=== PATIENT | male | born 1950 | race Caucasian/White ===

== ENCOUNTER 2023-10-16 18:24 | Inpatient (IN) | payer MEDICARE, OTHER ==
[~2023-10-16] VITALS: Ht 170.2 cm; Wt 62.4 kg
[2023-10-16 20:00] VITALS: BP 162/68; TEMP 99; O2SAT 93
[2023-10-16] MEDS ORDERED: MAGNESIUM HYDROXIDE 30 ML UDC PO PRN (21:30)
[2023-10-16] MEDS ORDERED: MAG HYDROX/AL HYDROX/SIMETH 30 ML UDC PO PRN (21:30)
[2023-10-16] MEDS ORDERED: IPRATROPIUM NEB FS 0.5 MG/2.5 ML AMPUL.NEB NEB PRN (21:30)
[2023-10-16] MEDS ORDERED: NITROGLYCERIN 0.4 MG/TAB BOTTLE SL PRN (21:30)
[2023-10-16] MEDS ORDERED: Z GUARD REMEDY 4 OZ OINT TP PRN (21:30)
[2023-10-16] MEDS ORDERED: ZOLPIDEM TARTRATE 5 MG TABLET PO PRN (21:30)
[2023-10-16] MEDS ORDERED: ALBUTEROL FS 2.5 MG/3 ML VIAL.NEB NEB PRN (21:30)
[2023-10-16] MEDS ORDERED: ENOXAPARIN SODIUM 40 MG/0.4 ML DISP.SYRIN SQ SCH (21:30)
[2023-10-16] MEDS ORDERED: ONDANSETRON HCL/PF 4 MG/2 ML VIAL IVP PRN (21:30)
[2023-10-16] MEDS: FUROSEMIDE 20 MG/2 ML VIAL IV SCH (22:04)
[2023-10-17] VITALS (9 sets, daily range): BP systolic 142–173; BP diastolic 65–79; TEMP 98.1–99.3; O2SAT 93–97
[2023-10-17] MEDS: ACETAMINOPHEN 325 MG TABLET PO PRN (02:06)
[2023-10-17 07:19] LABS: BASOPHILS # (AUTO) 0.1 K/uL (0.0-0.2); EOSINOPHILS # (AUTO) 0.2 K/uL (0.0-0.7); EOSINOPHILS % (AUTO) 2.9 % (0.0-6.0); HEMATOCRIT 26 % (39-51); HEMOGLOBIN 8.6 g/dL (13.5-17.5); LYMPHOCYTES # (AUTO) 1.6 K/uL (0.8-4.8); LYMPHOCYTES % (AUTO) 24.5 % (20.0-44.0); MEAN CORPUSCULAR HEMOGLOBIN 30 PG (26.0-33.0); MEAN CORPUSCULAR HGB CONC 33 g/dl (31.0-36.0); MEAN CORPUSCULAR VOLUME 90 fL (80-96); MONOCYTES # (AUTO) 0.4 K/uL (0.1-1.30); MONOCYTES % (AUTO) 5.6 % (2.0-12.0); NEUTROPHILS # (AUTO) 4.2 K/uL (1.8-8.9); PLATELET COUNT (AUTO) 293 K/uL (150-450); RED BLOOD CELL COUNT(AUTO) 2.87 MIL/uL (4.5-6.0); RED CELL DISTRIBUTION WIDTH 14.6 % (11.5-15.0); WHITE BLOOD COUNT (AUTO) 6.4 K/uL (4.3-11.0)
[2023-10-17 07:43] LABS: CHOLESTEROL 108 mg/dL (<200); HDL CHOLESTEROL 35 mg/dL (40-60); LDL 58 mg/dL (0-99); THYROID STIMULATING HORMONE 6.485 uIU/mL (0.358-3.74); TRIGLYCERIDES 90 mg/dL (30-150)
[2023-10-17 07:45] LABS: ALANINE AMINOTRANSFERASE 30 U/L (12-78); ALBUMIN 2.2 g/dL (3.4-5.0); ALKALINE PHOSPHATASE 166 U/L (46-116); ASPARTATE AMINOTRANSFERASE 26 U/L (15-37); BILIRUBIN,DIRECT 0.2 mg/dL (0.0-0.2); BILIRUBIN,TOTAL 0.6 mg/dL (0.2-1.0); CALCIUM, SERUM 8.7 mg/dL (8.5-10.1); CARBON DIOXIDE 25 mmol/L (21-32); CHLORIDE 112 mmol/L (98-107); MAGNESIUM 2.2 mg/dL (1.8-2.4); NT-PRO BNP > 25000 pg/mL (0-125); PHOSPHORUS 4.3 mg/dL (2.5-4.9); SODIUM SERUM 147 mmol/L (136-145); TOTAL PROTEIN, SERUM 6.5 g/dL (6.4-8.2); UREA NITROGEN, BLOOD 35 mg/dL (7-18)
[2023-10-17 07:52] LABS: GLUCOSE 47 mg/dL (74-106)
[2023-10-17] MEDS: PANTOPRAZOLE 40 MG TABLET.DR PO SCH (08:10)
[2023-10-17] MEDS: ENOXAPARIN SODIUM 40 MG/0.4 ML DISP.SYRIN SQ SCH (08:55)
[2023-10-17] MEDS: FUROSEMIDE 100 MG/10 ML VIAL IV SCH (11:35)
[2023-10-17 12:35] LABS: THYROID STIMULATING HORMONE 6.161 uIU/mL (0.358-3.74)
[2023-10-17] MEDS ORDERED: TAMS-12 PO (18:22)
[2023-10-17] MEDS ORDERED: PANT40TA49 PO (18:22)
[2023-10-17] MEDS ORDERED: CHOL200059 PO (18:22)
[2023-10-17] MEDS ORDERED: NIFE-34 PO (18:22)
[2023-10-17] MEDS ORDERED: GABA300C PO (18:22)
[2023-10-17] MEDS ORDERED: GLIP5TAB13 PO (18:22)
[2023-10-17] MEDS ORDERED: INSU100I30 SQ (18:22)
[2023-10-17] MEDS ORDERED: METO50TA16 PO (18:22)
[2023-10-17] MEDS ORDERED: FINA5TAB11 PO (18:22)
[2023-10-17] MEDS ORDERED: FURO40TA5 PO (18:22)
[2023-10-18] VITALS: BP_SYST 163; BP_DIAS 72; BP_DIAS 74; TEMP 98.8; TEMP 99; O2SAT 97
[2023-10-18 04:00] VITALS: BP_SYST 160; BP_SYST 164; BP_DIAS 71; TEMP 98.1; O2SAT 96
[2023-10-18 07:24] LABS: BASOPHILS # (AUTO) 0.1 K/uL (0.0-0.2); BASOPHILS % (AUTO) 1.5 % (0.0-2.0); EOSINOPHILS # (AUTO) 0.3 K/uL (0.0-0.7); EOSINOPHILS % (AUTO) 4.6 % (0.0-6.0); HEMATOCRIT 29 % (39-51); HEMOGLOBIN 9.7 g/dL (13.5-17.5); LYMPHOCYTES # (AUTO) 1.5 K/uL (0.8-4.8); LYMPHOCYTES % (AUTO) 24.7 % (20.0-44.0); MEAN CORPUSCULAR HEMOGLOBIN 30 PG (26.0-33.0); MEAN CORPUSCULAR HGB CONC 34 g/dl (31.0-36.0); MEAN CORPUSCULAR VOLUME 89 fL (80-96); MONOCYTES # (AUTO) 0.4 K/uL (0.1-1.30); MONOCYTES % (AUTO) 7.2 % (2.0-12.0); NEUTROPHILS # (AUTO) 3.8 K/uL (1.8-8.9); PLATELET COUNT (AUTO) 309 K/uL (150-450); RED BLOOD CELL COUNT(AUTO) 3.25 MIL/uL (4.5-6.0); RED CELL DISTRIBUTION WIDTH 14.6 % (11.5-15.0); WHITE BLOOD COUNT (AUTO) 6.2 K/uL (4.3-11.0)
[2023-10-18 07:45] LABS: ALANINE AMINOTRANSFERASE 25 U/L (12-78); ALBUMIN 2.3 g/dL (3.4-5.0); ALKALINE PHOSPHATASE 173 U/L (46-116); ASPARTATE AMINOTRANSFERASE 12 U/L (15-37); BILIRUBIN,TOTAL 0.7 mg/dL (0.2-1.0); CALCIUM, SERUM 8.9 mg/dL (8.5-10.1); CARBON DIOXIDE 28 mmol/L (21-32); CHLORIDE 106 mmol/L (98-107); CREATININE 1.9 mg/dL (0.6-1.3); GLUCOSE 89 mg/dL (74-106); MAGNESIUM 1.9 mg/dL (1.8-2.4); PHOSPHORUS 3.8 mg/dL (2.5-4.9); POTASSIUM 3.8 mmol/L (3.5-5.1); SODIUM SERUM 144 mmol/L (136-145); TOTAL PROTEIN, SERUM 6.8 g/dL (6.4-8.2); UREA NITROGEN, BLOOD 35 mg/dL (7-18)
[2023-10-18 08:00] VITALS: BP 177/84; TEMP 98.4; O2SAT 97
[2023-10-18] MEDS: Magnesium 1GM/D5W 100ML PREMIX 100 ML IV SCH (08:46)
[2023-10-18] MEDS: FUROSEMIDE 40 MG/4 ML VIAL IV SCH (08:48)
[2023-10-18] MEDS ORDERED: PANTOPRAZOLE 40 MG TABLET.DR PO SCH (09:00)
[2023-10-18] MEDS: FINASTERIDE (5 MG) 5 MG TABLET PO SCH (09:29)
[2023-10-18] MEDS: TAMSULOSIN 0.4 MG CAP.SR.24H PO SCH (09:29)
[2023-10-18] MEDS: glipiZIDE 5 MG TABLET PO SCH (09:29)
[2023-10-18] MEDS: METOPROLOL TARTRATE 50 MG TABLET PO SCH (09:30)
[2023-10-18] MEDS: POTASSIUM CHLORIDE 20 MEQ TAB.PRT.SR PO SCH (09:30)
[2023-10-18] MEDS: NIFEDIPINE XL 60 MG TAB.ER.24 PO SCH (09:30)
[2023-10-18 12:00] VITALS: BP 144/65; TEMP 98.6; O2SAT 95
[2023-10-18 16:00] VITALS: BP 114/62; TEMP 98.4; O2SAT 95
[2023-10-18 20:00] VITALS: BP 98/53; TEMP 98.4; O2SAT 97
[2023-10-18] MEDS: GABAPENTIN 300 MG CAPSULE PO SCH (21:54)
[2023-10-19] VITALS (7 sets, daily range): BP systolic 103–129; BP diastolic 55–94; TEMP 97.7–98.4; O2SAT 94–100
[2023-10-19 07:01] LABS: BASOPHILS # (AUTO) 0.1 K/uL (0.0-0.2); BASOPHILS % (AUTO) 1.3 % (0.0-2.0); EOSINOPHILS # (AUTO) 0.4 K/uL (0.0-0.7); EOSINOPHILS % (AUTO) 6.7 % (0.0-6.0); HEMATOCRIT 27 % (39-51); LYMPHOCYTES # (AUTO) 1.7 K/uL (0.8-4.8); LYMPHOCYTES % (AUTO) 26.9 % (20.0-44.0); MEAN CORPUSCULAR HEMOGLOBIN 30 PG (26.0-33.0); MEAN CORPUSCULAR HGB CONC 34 g/dl (31.0-36.0); MEAN CORPUSCULAR VOLUME 89 fL (80-96); MONOCYTES # (AUTO) 0.4 K/uL (0.1-1.30); MONOCYTES % (AUTO) 6.9 % (2.0-12.0); NEUTROPHILS # (AUTO) 3.6 K/uL (1.8-8.9); NEUTROPHILS % (AUTO) 58.2 % (43.0-81.0); PLATELET COUNT (AUTO) 281 K/uL (150-450); RED BLOOD CELL COUNT(AUTO) 2.99 MIL/uL (4.5-6.0); RED CELL DISTRIBUTION WIDTH 14.4 % (11.5-15.0); WHITE BLOOD COUNT (AUTO) 6.1 K/uL (4.3-11.0)
[2023-10-19 07:29] LABS: ALANINE AMINOTRANSFERASE 20 U/L (12-78); ALBUMIN 2.1 g/dL (3.4-5.0); ALKALINE PHOSPHATASE 147 U/L (46-116); ASPARTATE AMINOTRANSFERASE 15 U/L (15-37); BILIRUBIN,TOTAL 0.5 mg/dL (0.2-1.0); CALCIUM, SERUM 8.4 mg/dL (8.5-10.1); CARBON DIOXIDE 27 mmol/L (21-32); CHLORIDE 104 mmol/L (98-107); CREATININE 2.2 mg/dL (0.6-1.3); GLUCOSE 181 mg/dL (74-106); MAGNESIUM 2.4 mg/dL (1.8-2.4); POTASSIUM 4.5 mmol/L (3.5-5.1); SODIUM SERUM 138 mmol/L (136-145); TOTAL PROTEIN, SERUM 6.4 g/dL (6.4-8.2); UREA NITROGEN, BLOOD 43 mg/dL (7-18)
[2023-10-19] MEDS: NIFEdipine XL (30MG) 30 MG TAB PO SCH (10:54)
[2023-10-20] VITALS: BP 131/61; TEMP 98.4; O2SAT 96
[2023-10-20 04:00] VITALS: BP 130/62; TEMP 98.4; O2SAT 98
[2023-10-20 06:49] LABS: BASOPHILS # (AUTO) 0.1 K/uL (0.0-0.2); BASOPHILS % (AUTO) 1.2 % (0.0-2.0); EOSINOPHILS # (AUTO) 0.4 K/uL (0.0-0.7); EOSINOPHILS % (AUTO) 6.5 % (0.0-6.0); HEMATOCRIT 25 % (39-51); HEMOGLOBIN 8.5 g/dL (13.5-17.5); LYMPHOCYTES # (AUTO) 1.5 K/uL (0.8-4.8); LYMPHOCYTES % (AUTO) 26.4 % (20.0-44.0); MEAN CORPUSCULAR HEMOGLOBIN 30 PG (26.0-33.0); MEAN CORPUSCULAR HGB CONC 33 g/dl (31.0-36.0); MEAN CORPUSCULAR VOLUME 89 fL (80-96); MONOCYTES # (AUTO) 0.4 K/uL (0.1-1.30); NEUTROPHILS # (AUTO) 3.4 K/uL (1.8-8.9); NEUTROPHILS % (AUTO) 58.9 % (43.0-81.0); PLATELET COUNT (AUTO) 240 K/uL (150-450); RED BLOOD CELL COUNT(AUTO) 2.84 MIL/uL (4.5-6.0); RED CELL DISTRIBUTION WIDTH 14.3 % (11.5-15.0); WHITE BLOOD COUNT (AUTO) 5.8 K/uL (4.3-11.0)
[2023-10-20 07:13] LABS: ALANINE AMINOTRANSFERASE 43 U/L (12-78); ALKALINE PHOSPHATASE 137 U/L (46-116); ASPARTATE AMINOTRANSFERASE 29 U/L (15-37); BILIRUBIN,TOTAL 0.4 mg/dL (0.2-1.0); CALCIUM, SERUM 8.2 mg/dL (8.5-10.1); CARBON DIOXIDE 25 mmol/L (21-32); CHLORIDE 104 mmol/L (98-107); CREATININE 2.5 mg/dL (0.6-1.3); GLUCOSE 258 mg/dL (74-106); MAGNESIUM 2.3 mg/dL (1.8-2.4); SODIUM SERUM 136 mmol/L (136-145); TOTAL PROTEIN, SERUM 6.4 g/dL (6.4-8.2); UREA NITROGEN, BLOOD 48 mg/dL (7-18)
[2023-10-20 08:00] VITALS: BP 128/60; TEMP 97.7; O2SAT 97
[2023-10-20 12:00] VITALS: BP 124/57; TEMP 97.9; O2SAT 95
[2023-10-20 14:53] LABS: INR 1.03 (0.91-1.10); PARTIAL THROMBOPLASTIN TIME 29.9 SEC (24.3-34.3); PROTHROMBIN TIME 10.9 SECS (9.2-11.1)
[2023-10-20 16:00] VITALS: BP 124/59; TEMP 98.3; O2SAT 96
[2023-10-20 20:00] VITALS: BP 131/61; TEMP 98.6; O2SAT 95
[2023-10-21] VITALS: BP 134/63; TEMP 98.4; O2SAT 95
[2023-10-21 04:00] VITALS: BP 139/62; TEMP 98.4; O2SAT 95
[2023-10-21 07:05] LABS: INR 1.02 (0.91-1.10); PARTIAL THROMBOPLASTIN TIME 28.5 SEC (24.3-34.3); PROTHROMBIN TIME 10.8 SECS (9.2-11.1)
[2023-10-21 08:00] VITALS: BP 140/59; TEMP 97.9; O2SAT 96
[2023-10-21 10:54] LABS: APPEARANCE,URINE CLEAR (CLEAR); BILIRUBIN,URINE NEGATIVE (NEGATIVE); BLOOD, URINE TRACE-INTA Ery/uL (NEGATIVE); COLOR,URINE YELLOW (YELLOW); KETONES,URINE NEGATIVE (NEGATIVE); LEUKOCYTE ESTERASE ,URINE TRACE (NEGATIVE); NITRITE, URINE NEGATIVE (NEGATIVE); PROTEIN,URINE 2+ mg/dl (NEGATIVE); UGLUCOSE TRACE mg/dL (NEGATIVE); UROBILINOGEN,URINE 0.2 EU/dL (0.2)
[2023-10-21 10:59] LABS: CREATININE, URINE 57.6 MG/DL (30.0-125.0); URINE TOTAL PROTEIN 152.4 mg/dL (0-11.9)
[2023-10-21 11:06] LABS: ADD URINE CULTURE NO; BACTERIA,URINE Rare /HPF (None Seen); SQUAMOUS EPITHELIAL CELL,UR Moderate /HPF (None Seen)
[2023-10-21 11:39] LABS: EOSINOPHIL,URINE None Seen
[2023-10-21 12:00] VITALS: BP 130/61; TEMP 98.2; O2SAT 97
[2023-10-21 13:01] LABS: PROTEIN, BODY FLUID 2.1 G/DL
[2023-10-21 13:30] LABS: WBC, BODY FLUID 212 /cu. mm. (0-200)
[2023-10-21 13:38] LABS: APPEARANCE,SPUN,BODY FLUID CLEAR (CLEAR); MONOCYTES,BODY FLUID 9 %; POLYNUCLEAR, BODY FLUID 11 % (0-25); TOTAL VOLUME,BODY FLUID 1300 mL
[2023-10-21 16:00] VITALS: BP 121/61; TEMP 98.2; O2SAT 95
[2023-10-21 20:00] VITALS: BP 126/62; TEMP 98.6; O2SAT 95
[2023-10-22] VITALS: BP 133/61; TEMP 98.1; O2SAT 95
[2023-10-22 04:00] VITALS: BP 138/59; TEMP 98.5; O2SAT 95
[2023-10-22 06:50] LABS: BASOPHILS # (AUTO) 0.1 K/uL (0.0-0.2); EOSINOPHILS # (AUTO) 0.3 K/uL (0.0-0.7); EOSINOPHILS % (AUTO) 6.2 % (0.0-6.0); HEMATOCRIT 27 % (39-51); LYMPHOCYTES # (AUTO) 1.6 K/uL (0.8-4.8); LYMPHOCYTES % (AUTO) 30.4 % (20.0-44.0); MEAN CORPUSCULAR HEMOGLOBIN 30 PG (26.0-33.0); MEAN CORPUSCULAR HGB CONC 34 g/dl (31.0-36.0); MEAN CORPUSCULAR VOLUME 90 fL (80-96); MONOCYTES # (AUTO) 0.3 K/uL (0.1-1.30); MONOCYTES % (AUTO) 5.9 % (2.0-12.0); NEUTROPHILS % (AUTO) 56.5 % (43.0-81.0); PLATELET COUNT (AUTO) 232 K/uL (150-450); RED BLOOD CELL COUNT(AUTO) 2.98 MIL/uL (4.5-6.0); RED CELL DISTRIBUTION WIDTH 14.3 % (11.5-15.0); WHITE BLOOD COUNT (AUTO) 5.2 K/uL (4.3-11.0)
[2023-10-22 07:11] LABS: ALANINE AMINOTRANSFERASE 35 U/L (12-78); ALKALINE PHOSPHATASE 141 U/L (46-116); ASPARTATE AMINOTRANSFERASE 15 U/L (15-37); BILIRUBIN,TOTAL 0.6 mg/dL (0.2-1.0); CALCIUM, SERUM 8.6 mg/dL (8.5-10.1); CARBON DIOXIDE 26 mmol/L (21-32); CHLORIDE 107 mmol/L (98-107); CREATININE 2.1 mg/dL (0.6-1.3); GLUCOSE 196 mg/dL (74-106); MAGNESIUM 2.4 mg/dL (1.8-2.4); PHOSPHORUS 4.2 mg/dL (2.5-4.9); POTASSIUM 4.6 mmol/L (3.5-5.1); SODIUM SERUM 139 mmol/L (136-145); TOTAL PROTEIN, SERUM 6.4 g/dL (6.4-8.2); UREA NITROGEN, BLOOD 53 mg/dL (7-18)
[2023-10-22 07:12] LABS: CREATINE KINASE, TOTAL 22 U/L (39-308)
[2023-10-22 08:00] VITALS: BP 143/62; TEMP 98.2; O2SAT 95
[2023-10-22 12:00] VITALS: BP 134/62; TEMP 97.9; O2SAT 97
[2023-10-22 16:00] VITALS: BP 122/60; TEMP 97.9; O2SAT 97
[2023-10-22 20:00] VITALS: BP 137/65; TEMP 98.6; O2SAT 95
[2023-10-23] VITALS: BP 123/59; TEMP 98.6; O2SAT 95
[2023-10-23 04:00] VITALS: BP 125/54; TEMP 98.6; O2SAT 93
[2023-10-23 08:00] VITALS: BP 134/61; TEMP 99; O2SAT 93
[2023-10-23 08:06] LABS: PTH, INTACT 77 pg/mL (15-65)
[2023-10-23] MEDS: BUMETANIDE INJ 8 MG in IV NS 0.9% 48 ML IV ONE (09:20)
[2023-10-23 12:00] VITALS: BP 125/58; TEMP 97.9; O2SAT 93
[2023-10-23 16:00] VITALS: BP 108/58; TEMP 98; O2SAT 95
[2023-10-23 20:00] VITALS: BP 114/56; TEMP 98.6; O2SAT 96
[2023-10-24] VITALS (8 sets, daily range): BP systolic 116–129; BP diastolic 58–61; TEMP 97.9–98.6; O2SAT 93–98
[2023-10-24 07:00] LABS: CALCIUM, SERUM 7.9 mg/dL (8.5-10.1); CARBON DIOXIDE 24 mmol/L (21-32); CHLORIDE 103 mmol/L (98-107); CREATININE 2.3 mg/dL (0.6-1.3); GLUCOSE 265 mg/dL (74-106); POTASSIUM 4.5 mmol/L (3.5-5.1); SODIUM SERUM 137 mmol/L (136-145); UREA NITROGEN, BLOOD 66 mg/dL (7-18)
[2023-10-25 01:48] VITALS: BP 136/59; TEMP 98.2; O2SAT 96
[2023-10-25 04:37] VITALS: BP 141/61; TEMP 98.2; O2SAT 96
[2023-10-25 07:26] LABS: CALCIUM, SERUM 8.5 mg/dL (8.5-10.1); CARBON DIOXIDE 25 mmol/L (21-32); CHLORIDE 103 mmol/L (98-107); CREATININE 2.1 mg/dL (0.6-1.3); GLUCOSE 280 mg/dL (74-106); POTASSIUM 4.3 mmol/L (3.5-5.1); SODIUM SERUM 137 mmol/L (136-145); UREA NITROGEN, BLOOD 55 mg/dL (7-18)
[2023-10-25 08:00] VITALS: BP 135/62; TEMP 98.1; O2SAT 91
[2023-10-25 12:00] VITALS: BP 122/55; TEMP 98.4; O2SAT 96
[2023-10-25] MEDS ORDERED: NIFE-35 PO (13:41)
[2023-10-28 12:07] LABS: *SPE A/G RATIO 0.6 (0.7-1.7); *SPE ALBUMIN 2.2 g/dL (2.9-4.4); *SPE ALPHA-1-GLOBULIN 0.3 g/dL (0.0-0.4); *SPE ALPHA-2-GLOBULIN 0.8 g/dL (0.4-1.0); *SPE BETA GLOBULIN 0.8 g/dL (0.7-1.3); *SPE GLOBULIN, TOTAL 3.8 g/dL (2.2-3.9); *SPE M-SPIKE 0.8 g/dL (Not Observed); *SPEGAMMA GLOBULIN 1.9 g/dL (0.4-1.8)
== END 2023-10-25 14:20 | disposition home health service (06) | DRG 291 ==
LOC: TELE-TD 20:15 → TELE1 21:07 → MEDSG1 10-25 10:44
PROVIDERS: ADMIT Nurse Practitioner Family; ATTEND Nurse Practitioner Acute Care
PROC: 0W993ZZ Drainage of Right Pleural Cavity, Percutaneous Approach (ICD-10-PCS; principal; 2023-10-21)
DX: I13.0 Hypertensive heart and chronic kidney disease with heart failure and stage 1 through stage 4 chronic kidney disease, or unspecified chronic kidney disease (principal); I50.23 Acute on chronic systolic (congestive) heart failure; J96.01 Acute respiratory failure with hypoxia; N17.9 Acute kidney failure, unspecified; E44.0 Moderate protein-calorie malnutrition; I47.20 Ventricular tachycardia, unspecified; J90 Pleural effusion, not elsewhere classified; N18.30 Chronic kidney disease, stage 3 unspecified; D64.9 Anemia, unspecified; E78.5 Hyperlipidemia, unspecified; E11.65 Type 2 diabetes mellitus with hyperglycemia; E11.22 Type 2 diabetes mellitus with diabetic chronic kidney disease; I25.10 Atherosclerotic heart disease of native coronary artery without angina pectoris; Z79.4 Long term (current) use of insulin; I25.2 Old myocardial infarction; E88.09 Other disorders of plasma-protein metabolism, not elsewhere classified; E03.8 Other specified hypothyroidism; J45.909 Unspecified asthma, uncomplicated; M89.8X9 Other specified disorders of bone, unspecified site; N40.0 Benign prostatic hyperplasia without lower urinary tract symptoms; Z68.21 Body mass index [BMI] 21.0-21.9, adult; Z99.81 Dependence on supplemental oxygen; M25.511 Pain in right shoulder; Z91.81 History of falling
CPT/HCPCS: 36415; 71045-TC; 71250-TC; 76770-TC; 80048-TC; 80053-TC; 80061-TC; 80076-TC; 81001; 82550-TC; 82570-TC; 82728-TC; 82962-TC; 83540-TC; 83735-TC; 83880; 83970; 84100-TC; 84155; 84165; 84300-TC; 84439-TC; 84443-TC; 84484-TC; 85025-TC; 85730-TC; 87081-TC; 87102-TC; 89051-TC; 93307-TC; 94760-TC; 94799-TC; A4223; G0378; J1650; J1940; J3475; J3490; J7050

== ENCOUNTER 2023-10-27 08:45 | Inpatient (IN) | payer MEDICARE, OTHER ==
[~2023-10-27] VITALS: Ht 167.6 cm; Wt 57.4 kg
[~2023-10-27 08:45] MED LIST: CHOL200059 PO; FINA5TAB11 PO; GABA300C PO; GLIP5TAB13 PO; INSU100I30 SQ; METO50TA16 PO; NIFE-34 PO; NIFE-35 PO; PANT40TA49 PO; TAMS-12 PO
[2023-10-27 09:30] LABS: BASOPHILS # (AUTO) 0.1 K/uL (0.0-0.2); EOSINOPHILS # (AUTO) 0.4 K/uL (0.0-0.7); EOSINOPHILS % (AUTO) 5.6 % (0.0-6.0); HEMATOCRIT 26 % (39-51); HEMOGLOBIN 8.8 g/dL (13.5-17.5); LYMPHOCYTES # (AUTO) 1.6 K/uL (0.8-4.8); MEAN CORPUSCULAR HEMOGLOBIN 30 PG (26.0-33.0); MEAN CORPUSCULAR HGB CONC 34 g/dl (31.0-36.0); MEAN CORPUSCULAR VOLUME 89 fL (80-96); MONOCYTES # (AUTO) 0.4 K/uL (0.1-1.30); MONOCYTES % (AUTO) 6.1 % (2.0-12.0); NEUTROPHILS % (AUTO) 62.3 % (43.0-81.0); PLATELET COUNT (AUTO) 280 K/uL (150-450); RED BLOOD CELL COUNT(AUTO) 2.94 MIL/uL (4.5-6.0); RED CELL DISTRIBUTION WIDTH 14.4 % (11.5-15.0); WHITE BLOOD COUNT (AUTO) 6.4 K/uL (4.3-11.0)
[2023-10-27 09:56] LABS: INR 1.03 (0.91-1.10); PARTIAL THROMBOPLASTIN TIME 28.4 SEC (24.3-34.3); PROTHROMBIN TIME 10.9 SECS (9.2-11.1)
[2023-10-27 09:59] LABS: ALANINE AMINOTRANSFERASE 30 U/L (12-78); ALBUMIN 2.4 g/dL (3.4-5.0); ALKALINE PHOSPHATASE 152 U/L (46-116); ASPARTATE AMINOTRANSFERASE 15 U/L (15-37); BILIRUBIN,DIRECT 0.1 mg/dL (0.0-0.2); BILIRUBIN,TOTAL 0.5 mg/dL (0.2-1.0); CARBON DIOXIDE 23 mmol/L (21-32); CHLORIDE 105 mmol/L (98-107); CREATININE 2.3 mg/dL (0.6-1.3); GLUCOSE 137 mg/dL (74-106); POTASSIUM 4.8 mmol/L (3.5-5.1); SODIUM SERUM 140 mmol/L (136-145); TOTAL PROTEIN, SERUM 7.4 g/dL (6.4-8.2); UREA NITROGEN, BLOOD 47 mg/dL (7-18)
[2023-10-27 10:17] LABS: LACTIC ACID 2.2 mmol/L (0.4-2.0)
[2023-10-27] MEDS ORDERED: FUROSEMIDE 40 MG/4 ML VIAL ONE (10:40)
[2023-10-27] MEDS: FUROSEMIDE 40 MG/4 ML VIAL IV ONE (10:44)
[2023-10-27] MEDS ORDERED: MAGNESIUM HYDROXIDE 30 ML UDC PO PRN (11:00)
[2023-10-27] MEDS ORDERED: PANTOPRAZOLE 40 MG TABLET.DR PO SCH (11:00)
[2023-10-27] MEDS ORDERED: HYDROCODONE/APAP 5/325MG TABLET PO PRN (11:00)
[2023-10-27] MEDS ORDERED: ONDANSETRON HCL/PF 4 MG/2 ML VIAL IVP PRN (11:00)
[2023-10-27] MEDS ORDERED: MAG HYDROX/AL HYDROX/SIMETH 30 ML UDC PO PRN (11:00)
[2023-10-27] MEDS ORDERED: Z GUARD REMEDY 4 OZ OINT TP PRN (11:00)
[2023-10-27] MEDS ORDERED: DEXTROSE 50%-WATER 50 ML DISP.SYRIN IV PRN (11:30)
[2023-10-27] MEDS ORDERED: BUMETANIDE INJ 16 MG in IV NS 0.9% 16 ML IV ONE (13:00)
[2023-10-27 16:00] VITALS: BP 166/70; TEMP 97.1; O2SAT 94
[2023-10-27] MEDS: BUMETANIDE INJ 16 MG in IV NS 0.9% 16 ML IV ONE (17:07)
[2023-10-27] MEDS: GABAPENTIN 300 MG CAPSULE PO SCH (22:25)
[2023-10-27] MEDS: BLOOD SUGAR DIAGNOSTIC 1 EACH STRIP IN SCH (22:26)
[2023-10-27] MEDS: INSULIN REGULAR, HUMAN 100 UNIT/ML 3 ML VIAL SQ PRN (23:01)
[2023-10-28] VITALS: BP_SYST 106; BP_SYST 158; BP_DIAS 66; BP_DIAS 67; TEMP 98.2; TEMP 98.8; O2SAT 98
[2023-10-28] MEDS: METOPROLOL TARTRATE 50 MG TABLET PO SCH (00:10)
[2023-10-28 06:41] LABS: BASOPHILS % (AUTO) 0.7 % (0.0-2.0); EOSINOPHILS # (AUTO) 0.3 K/uL (0.0-0.7); EOSINOPHILS % (AUTO) 5.2 % (0.0-6.0); HEMATOCRIT 27 % (39-51); HEMOGLOBIN 9.1 g/dL (13.5-17.5); LYMPHOCYTES # (AUTO) 1.2 K/uL (0.8-4.8); LYMPHOCYTES % (AUTO) 25.3 % (20.0-44.0); MEAN CORPUSCULAR HEMOGLOBIN 30 PG (26.0-33.0); MEAN CORPUSCULAR HGB CONC 33 g/dl (31.0-36.0); MEAN CORPUSCULAR VOLUME 89 fL (80-96); MONOCYTES # (AUTO) 0.3 K/uL (0.1-1.30); MONOCYTES % (AUTO) 7.1 % (2.0-12.0); NEUTROPHILS % (AUTO) 61.7 % (43.0-81.0); PLATELET COUNT (AUTO) 265 K/uL (150-450); RED BLOOD CELL COUNT(AUTO) 3.09 MIL/uL (4.5-6.0); RED CELL DISTRIBUTION WIDTH 14.7 % (11.5-15.0); WHITE BLOOD COUNT (AUTO) 4.8 K/uL (4.3-11.0)
[2023-10-28 06:52] LABS: INR 1.08 (0.91-1.10); PARTIAL THROMBOPLASTIN TIME 29.6 SEC (24.3-34.3); PROTHROMBIN TIME 11.4 SECS (9.2-11.1)
[2023-10-28 07:05] LABS: ALANINE AMINOTRANSFERASE 24 U/L (12-78); ALBUMIN 2.2 g/dL (3.4-5.0); ALKALINE PHOSPHATASE 154 U/L (46-116); ASPARTATE AMINOTRANSFERASE 16 U/L (15-37); BILIRUBIN,TOTAL 0.7 mg/dL (0.2-1.0); CARBON DIOXIDE 27 mmol/L (21-32); CHLORIDE 105 mmol/L (98-107); CREATININE 1.9 mg/dL (0.6-1.3); GLUCOSE 55 mg/dL (74-106); MAGNESIUM 2.3 mg/dL (1.8-2.4); POTASSIUM 3.9 mmol/L (3.5-5.1); SODIUM SERUM 142 mmol/L (136-145); TOTAL PROTEIN, SERUM 7.1 g/dL (6.4-8.2); UREA NITROGEN, BLOOD 40 mg/dL (7-18)
[2023-10-28 08:00] VITALS: BP 147/73; TEMP 98.4; O2SAT 96
[2023-10-28] MEDS: PANTOPRAZOLE 40 MG TABLET.DR PO SCH (08:14)
[2023-10-28] MEDS: FINASTERIDE (5 MG) 5 MG TABLET PO SCH (08:15)
[2023-10-28] MEDS: TAMSULOSIN 0.4 MG CAP.SR.24H PO SCH (08:15)
[2023-10-28] MEDS: NIFEdipine XL (30MG) 30 MG TAB PO SCH (08:15)
[2023-10-28] MEDS: glipiZIDE 5 MG TABLET PO SCH (08:15)
[2023-10-28] MEDS: POTASSIUM CHLORIDE 20 MEQ TAB.PRT.SR PO SCH (08:36)
[2023-10-28] MEDS: BUMETANIDE INJ 16 MG in IV NS 0.9% 16 ML IV ONE (08:52)
[2023-10-28] MEDS ORDERED: FUROSEMIDE 40 MG/4 ML VIAL IV SCH (09:00)
[2023-10-28 11:12] LABS: APPEARANCE,URINE CLEAR (CLEAR); BILIRUBIN,URINE NEGATIVE (NEGATIVE); BLOOD, URINE TRACE-INTA Ery/uL (NEGATIVE); COLOR,URINE YELLOW (YELLOW); KETONES,URINE NEGATIVE (NEGATIVE); LEUKOCYTE ESTERASE ,URINE 1+ (NEGATIVE); NITRITE, URINE NEGATIVE (NEGATIVE); PROTEIN,URINE 2+ mg/dl (NEGATIVE); UGLUCOSE NEGATIVE (NEGATIVE); UROBILINOGEN,URINE 0.2 EU/dL (0.2)
[2023-10-28 11:13] LABS: ADD URINE CULTURE YES; BACTERIA,URINE Rare /HPF (None Seen); SQUAMOUS EPITHELIAL CELL,UR Few /HPF (None Seen)
[2023-10-28 11:15] LABS: CREATININE, URINE 15.7 MG/DL (30.0-125.0); URINE TOTAL PROTEIN 74.9 mg/dL (0-11.9)
[2023-10-28 12:40] LABS: EOSINOPHIL,URINE None Seen
[2023-10-28 15:55] LABS: WBC, BODY FLUID 176 /cu. mm. (0-200)
[2023-10-28 16:00] VITALS: BP 134/60; TEMP 98.2; O2SAT 94
[2023-10-28 16:01] LABS: PROTEIN, BODY FLUID 2.1 G/DL
[2023-10-28 16:45] LABS: APPEARANCE,SPUN,BODY FLUID CLEAR (CLEAR); MACROPHAGES, BODY FLUID 60; POLYNUCLEAR, BODY FLUID 15 % (0-25); TOTAL VOLUME,BODY FLUID 1575 mL
[2023-10-28] MEDS: ACETAMINOPHEN 325 MG TABLET PO PRN (18:12)
[2023-10-28 20:00] VITALS: BP 110/61; TEMP 98.4; O2SAT 98
[2023-10-28 21:29] VITALS: BP 110/61; TEMP 98.4; O2SAT 98
[2023-10-29] VITALS (10 sets, daily range): BP systolic 106–140; BP diastolic 57–75; TEMP 97.5–98.2; O2SAT 96–100
[2023-10-29 06:27] LABS: BASOPHILS # (AUTO) 0.1 K/uL (0.0-0.2); EOSINOPHILS # (AUTO) 0.4 K/uL (0.0-0.7); HEMATOCRIT 29 % (39-51); HEMOGLOBIN 9.6 g/dL (13.5-17.5); LYMPHOCYTES # (AUTO) 2.1 K/uL (0.8-4.8); LYMPHOCYTES % (AUTO) 37.1 % (20.0-44.0); MEAN CORPUSCULAR HEMOGLOBIN 30 PG (26.0-33.0); MEAN CORPUSCULAR HGB CONC 33 g/dl (31.0-36.0); MEAN CORPUSCULAR VOLUME 89 fL (80-96); MONOCYTES # (AUTO) 0.4 K/uL (0.1-1.30); MONOCYTES % (AUTO) 7.1 % (2.0-12.0); NEUTROPHILS # (AUTO) 2.7 K/uL (1.8-8.9); NEUTROPHILS % (AUTO) 47.8 % (43.0-81.0); PLATELET COUNT (AUTO) 287 K/uL (150-450); RED BLOOD CELL COUNT(AUTO) 3.26 MIL/uL (4.5-6.0); RED CELL DISTRIBUTION WIDTH 14.6 % (11.5-15.0); WHITE BLOOD COUNT (AUTO) 5.7 K/uL (4.3-11.0)
[2023-10-29 06:42] LABS: ALANINE AMINOTRANSFERASE 20 U/L (12-78); ALBUMIN 2.3 g/dL (3.4-5.0); ALKALINE PHOSPHATASE 153 U/L (46-116); ASPARTATE AMINOTRANSFERASE 12 U/L (15-37); BILIRUBIN,TOTAL 0.6 mg/dL (0.2-1.0); CALCIUM, SERUM 8.9 mg/dL (8.5-10.1); CARBON DIOXIDE 26 mmol/L (21-32); CHLORIDE 101 mmol/L (98-107); CREATININE 2.4 mg/dL (0.6-1.3); GLUCOSE 187 mg/dL (74-106); MAGNESIUM 2.2 mg/dL (1.8-2.4); PHOSPHORUS 4.6 mg/dL (2.5-4.9); POTASSIUM 5.2 mmol/L (3.5-5.1); SODIUM SERUM 137 mmol/L (136-145); TOTAL PROTEIN, SERUM 7.4 g/dL (6.4-8.2); UREA NITROGEN, BLOOD 56 mg/dL (7-18)
[2023-10-29] MEDS: METOLAZONE 2.5 MG TABLET PO ONE (08:31)
[2023-10-29] MEDS: FUROSEMIDE 100 MG/10 ML VIAL IV ONE (08:32)
[2023-10-30] VITALS: BP 115/74; O2SAT 97
[2023-10-30 04:00] VITALS: BP 135/61; TEMP 98.6; O2SAT 97
[2023-10-30 06:45] LABS: BASOPHILS # (AUTO) 0.1 K/uL (0.0-0.2); BASOPHILS % (AUTO) 0.8 % (0.0-2.0); EOSINOPHILS # (AUTO) 0.4 K/uL (0.0-0.7); EOSINOPHILS % (AUTO) 5.6 % (0.0-6.0); HEMATOCRIT 29 % (39-51); HEMOGLOBIN 9.6 g/dL (13.5-17.5); LYMPHOCYTES # (AUTO) 2.2 K/uL (0.8-4.8); LYMPHOCYTES % (AUTO) 31.8 % (20.0-44.0); MEAN CORPUSCULAR HEMOGLOBIN 30 PG (26.0-33.0); MEAN CORPUSCULAR HGB CONC 33 g/dl (31.0-36.0); MEAN CORPUSCULAR VOLUME 89 fL (80-96); MONOCYTES # (AUTO) 0.5 K/uL (0.1-1.30); MONOCYTES % (AUTO) 7.2 % (2.0-12.0); NEUTROPHILS # (AUTO) 3.8 K/uL (1.8-8.9); NEUTROPHILS % (AUTO) 54.6 % (43.0-81.0); PLATELET COUNT (AUTO) 297 K/uL (150-450); RED BLOOD CELL COUNT(AUTO) 3.24 MIL/uL (4.5-6.0); RED CELL DISTRIBUTION WIDTH 14.7 % (11.5-15.0); WHITE BLOOD COUNT (AUTO) 6.9 K/uL (4.3-11.0)
[2023-10-30 07:22] LABS: ALANINE AMINOTRANSFERASE 39 U/L (12-78); ALBUMIN 2.3 g/dL (3.4-5.0); ALKALINE PHOSPHATASE 146 U/L (46-116); ASPARTATE AMINOTRANSFERASE 32 U/L (15-37); BILIRUBIN,TOTAL 0.6 mg/dL (0.2-1.0); CALCIUM, SERUM 8.6 mg/dL (8.5-10.1); CARBON DIOXIDE 27 mmol/L (21-32); CHLORIDE 100 mmol/L (98-107); CREATININE 2.4 mg/dL (0.6-1.3); GLUCOSE 178 mg/dL (74-106); MAGNESIUM 2.3 mg/dL (1.8-2.4); PHOSPHORUS 4.9 mg/dL (2.5-4.9); POTASSIUM 4.4 mmol/L (3.5-5.1); SODIUM SERUM 138 mmol/L (136-145); TOTAL PROTEIN, SERUM 7.5 g/dL (6.4-8.2); UREA NITROGEN, BLOOD 71 mg/dL (7-18)
[2023-10-30 08:00] VITALS: BP 121/59; TEMP 98.4; O2SAT 96
[2023-10-30 12:08] VITALS: BP 124/61; TEMP 98.3; O2SAT 95
[2023-10-30 16:00] VITALS: BP 117/60; TEMP 98.4; O2SAT 98
[2023-10-30 20:00] VITALS: BP 111/59; TEMP 98.6; O2SAT 95
[2023-10-31] VITALS: BP 123/63; TEMP 98.6; O2SAT 97
[2023-10-31 04:00] VITALS: BP 126/66; TEMP 98.6; O2SAT 95
[2023-10-31 08:00] VITALS: BP 111/60; TEMP 98; O2SAT 95
[2023-10-31 10:52] LABS: BASOPHILS # (AUTO) 0.1 K/uL (0.0-0.2); BASOPHILS % (AUTO) 0.9 % (0.0-2.0); EOSINOPHILS # (AUTO) 0.3 K/uL (0.0-0.7); EOSINOPHILS % (AUTO) 4.8 % (0.0-6.0); HEMATOCRIT 28 % (39-51); HEMOGLOBIN 9.4 g/dL (13.5-17.5); LYMPHOCYTES # (AUTO) 1.7 K/uL (0.8-4.8); LYMPHOCYTES % (AUTO) 25.7 % (20.0-44.0); MEAN CORPUSCULAR HEMOGLOBIN 30 PG (26.0-33.0); MEAN CORPUSCULAR HGB CONC 34 g/dl (31.0-36.0); MEAN CORPUSCULAR VOLUME 89 fL (80-96); MONOCYTES # (AUTO) 0.5 K/uL (0.1-1.30); MONOCYTES % (AUTO) 7.5 % (2.0-12.0); NEUTROPHILS # (AUTO) 3.9 K/uL (1.8-8.9); NEUTROPHILS % (AUTO) 61.1 % (43.0-81.0); PLATELET COUNT (AUTO) 294 K/uL (150-450); RED BLOOD CELL COUNT(AUTO) 3.14 MIL/uL (4.5-6.0); RED CELL DISTRIBUTION WIDTH 14.5 % (11.5-15.0); WHITE BLOOD COUNT (AUTO) 6.4 K/uL (4.3-11.0)
[2023-10-31 11:08] LABS: ALANINE AMINOTRANSFERASE 31 U/L (12-78); ALBUMIN 2.2 g/dL (3.4-5.0); ALKALINE PHOSPHATASE 135 U/L (46-116); ASPARTATE AMINOTRANSFERASE 17 U/L (15-37); BILIRUBIN,TOTAL 0.4 mg/dL (0.2-1.0); CALCIUM, SERUM 8.5 mg/dL (8.5-10.1); CARBON DIOXIDE 26 mmol/L (21-32); CHLORIDE 100 mmol/L (98-107); CREATININE 2.7 mg/dL (0.6-1.3); GLUCOSE 354 mg/dL (74-106); MAGNESIUM 2.2 mg/dL (1.8-2.4); PHOSPHORUS 4.7 mg/dL (2.5-4.9); POTASSIUM 4.6 mmol/L (3.5-5.1); SODIUM SERUM 135 mmol/L (136-145); TOTAL PROTEIN, SERUM 7.2 g/dL (6.4-8.2); UREA NITROGEN, BLOOD 67 mg/dL (7-18)
[2023-10-31 12:00] VITALS: BP 128/72; TEMP 97.8; O2SAT 97
[2023-10-31 16:00] VITALS: BP 123/62; TEMP 98.2; O2SAT 96
[2023-10-31 22:03] VITALS: BP 109/66; TEMP 98.2; O2SAT 96
[2023-11-01] VITALS: BP 112/71; TEMP 97.8
[2023-11-01 04:00] VITALS: BP 117/75; TEMP 98.1; O2SAT 98
[2023-11-01 07:29] LABS: BASOPHILS # (AUTO) 0.1 K/uL (0.0-0.2); BASOPHILS % (AUTO) 0.9 % (0.0-2.0); EOSINOPHILS # (AUTO) 0.3 K/uL (0.0-0.7); EOSINOPHILS % (AUTO) 5.1 % (0.0-6.0); HEMATOCRIT 27 % (39-51); HEMOGLOBIN 9.2 g/dL (13.5-17.5); LYMPHOCYTES % (AUTO) 31.6 % (20.0-44.0); MEAN CORPUSCULAR HEMOGLOBIN 30 PG (26.0-33.0); MEAN CORPUSCULAR HGB CONC 33 g/dl (31.0-36.0); MEAN CORPUSCULAR VOLUME 89 fL (80-96); MONOCYTES # (AUTO) 0.5 K/uL (0.1-1.30); MONOCYTES % (AUTO) 7.5 % (2.0-12.0); NEUTROPHILS # (AUTO) 3.6 K/uL (1.8-8.9); NEUTROPHILS % (AUTO) 54.9 % (43.0-81.0); PLATELET COUNT (AUTO) 285 K/uL (150-450); RED BLOOD CELL COUNT(AUTO) 3.09 MIL/uL (4.5-6.0); RED CELL DISTRIBUTION WIDTH 14.5 % (11.5-15.0); WHITE BLOOD COUNT (AUTO) 6.5 K/uL (4.3-11.0)
[2023-11-01 08:00] VITALS: BP 127/71; TEMP 98; O2SAT 96
[2023-11-01 08:14] LABS: ALANINE AMINOTRANSFERASE 60 U/L (12-78); ALBUMIN 2.2 g/dL (3.4-5.0); ALKALINE PHOSPHATASE 133 U/L (46-116); ASPARTATE AMINOTRANSFERASE 39 U/L (15-37); BILIRUBIN,TOTAL 0.5 mg/dL (0.2-1.0); CALCIUM, SERUM 8.1 mg/dL (8.5-10.1); CARBON DIOXIDE 26 mmol/L (21-32); CHLORIDE 102 mmol/L (98-107); CREATININE 2.5 mg/dL (0.6-1.3); GLUCOSE 141 mg/dL (74-106); MAGNESIUM 2.3 mg/dL (1.8-2.4); PHOSPHORUS 4.7 mg/dL (2.5-4.9); POTASSIUM 4.4 mmol/L (3.5-5.1); SODIUM SERUM 138 mmol/L (136-145); TOTAL PROTEIN, SERUM 7.2 g/dL (6.4-8.2); UREA NITROGEN, BLOOD 72 mg/dL (7-18)
[2023-11-01 12:01] VITALS: BP 109/66; TEMP 98.2; O2SAT 96
[2023-11-01 16:00] VITALS: BP 120/66; TEMP 98; O2SAT 96
[2023-11-01 20:00] VITALS: BP 116/59; TEMP 97.9; O2SAT 96
[2023-11-02] VITALS: BP 120/58; TEMP 97.3; O2SAT 96
[2023-11-02 04:08] VITALS: BP 127/56; TEMP 97.5; O2SAT 98
[2023-11-02 09:03] VITALS: BP 128/71; TEMP 98; O2SAT 96
[2023-11-02 12:27] VITALS: BP 120/66; TEMP 98; O2SAT 96
== END 2023-11-02 14:50 | disposition home health service (06) | DRG 291 ==
LOC: ER 08:45 → TELE1 14:08
PROVIDERS: ADMIT Nurse Practitioner Acute Care; ATTEND Nurse Practitioner Acute Care
PROC: 0W993ZZ Drainage of Right Pleural Cavity, Percutaneous Approach (ICD-10-PCS; principal; 2023-10-28)
DX: I13.0 Hypertensive heart and chronic kidney disease with heart failure and stage 1 through stage 4 chronic kidney disease, or unspecified chronic kidney disease (principal); I50.23 Acute on chronic systolic (congestive) heart failure; J96.01 Acute respiratory failure with hypoxia; N17.9 Acute kidney failure, unspecified; N18.4 Chronic kidney disease, stage 4 (severe); J90 Pleural effusion, not elsewhere classified; E87.20 Acidosis, unspecified; I25.10 Atherosclerotic heart disease of native coronary artery without angina pectoris; E11.65 Type 2 diabetes mellitus with hyperglycemia; E78.5 Hyperlipidemia, unspecified; E87.5 Hyperkalemia; E88.09 Other disorders of plasma-protein metabolism, not elsewhere classified; F41.9 Anxiety disorder, unspecified; E11.22 Type 2 diabetes mellitus with diabetic chronic kidney disease; I42.9 Cardiomyopathy, unspecified; J45.909 Unspecified asthma, uncomplicated; M89.8X9 Other specified disorders of bone, unspecified site; I25.2 Old myocardial infarction; E03.8 Other specified hypothyroidism; D63.8 Anemia in other chronic diseases classified elsewhere; Z79.4 Long term (current) use of insulin; Z79.84 Long term (current) use of oral hypoglycemic drugs; N40.0 Benign prostatic hyperplasia without lower urinary tract symptoms; R78.89 Finding of other specified substances, not normally found in blood; D64.9 Anemia, unspecified; Z98.61 Coronary angioplasty status
CPT/HCPCS: 36415; 71045-TC; 80048-TC; 80053-TC; 80076-TC; 81001; 82570-TC; 82962-TC; 83605-TC; 83735-TC; 83880; 84100-TC; 84300-TC; 84484-TC; 85025-TC; 85730-TC; 87040-TC; 87086-TC; 87102-TC; 89051-TC; 94762-TC; 94799-TC; 97110-TC; 97116-TC; 97530-TC; A4223; G0378; J1815; J1940; J3490; J7050

== ENCOUNTER 2024-06-24 16:27 | Emergency (ER) | payer MEDICARE, OTHER ==
[~2024-06-24] VITALS: Ht 165.1 cm; Wt 41.7 kg
[~2024-06-24 16:27] MED LIST changes: -NIFE-35 PO
[2024-06-24 18:00] VITALS: TEMP 98.1
[2024-06-24] MEDS ORDERED: IBUP-1490 PO (21:19)
[2024-06-24] MEDS ORDERED: KETOROLAC TROMETHAMINE 15 MG/ML VIAL ONE (21:45)
[2024-06-24] MEDS: KETOROLAC TROMETHAMINE 15 MG/ML VIAL IM ONE (21:49)
[2024-06-24 22:30] VITALS: BP 140/90; O2SAT 97
== END 2024-06-24 22:10 | disposition home or self-care (01) ==
LOC: ER 17:30
DX: S22.31XA Fracture of one rib, right side, initial encounter for closed fracture (principal); S09.90XA Unspecified injury of head, initial encounter; E11.9 Type 2 diabetes mellitus without complications; I10 Essential (primary) hypertension; Z79.84 Long term (current) use of oral hypoglycemic drugs; Z79.899 Other long term (current) drug therapy; W22.09XA Striking against other stationary object, initial encounter; Y93.89 Activity, other specified; Y92.89 Other specified places as the place of occurrence of the external cause; Y99.8 Other external cause status
CPT/HCPCS: 99285; 71250; 96372; 70450; 74176; J1885

== ENCOUNTER 2024-09-03 14:59 | Emergency (ER) | payer MEDICARE, OTHER ==
[~2024-09-03] VITALS: Ht 167.6 cm; Wt 54.4 kg
[~2024-09-03 14:59] MED LIST changes: +IBUP-1490 PO
[2024-09-03 15:47] LABS: BASOPHILS # (AUTO) 0.1 K/uL (0.0-0.2); BASOPHILS % (AUTO) 0.9 % (0.0-2.0); EOSINOPHILS % (AUTO) 0.1 % (0.0-6.0); HEMATOCRIT 35 % (39-51); HEMOGLOBIN 11.6 g/dL (13.5-17.5); LYMPHOCYTES # (AUTO) 1.4 K/uL (0.8-4.8); MEAN CORPUSCULAR HEMOGLOBIN 33 PG (26.0-33.0); MEAN CORPUSCULAR HGB CONC 33 g/dl (31.0-36.0); MEAN CORPUSCULAR VOLUME 98 fL (80-96); MONOCYTES # (AUTO) 0.5 K/uL (0.1-1.30); MONOCYTES % (AUTO) 4.8 % (2.0-12.0); NEUTROPHILS # (AUTO) 7.5 K/uL (1.8-8.9); NEUTROPHILS % (AUTO) 79.2 % (43.0-81.0); PLATELET COUNT (AUTO) 170 K/uL (150-450); RED BLOOD CELL COUNT(AUTO) 3.56 MIL/uL (4.5-6.0); RED CELL DISTRIBUTION WIDTH 13.9 % (11.5-15.0); WHITE BLOOD COUNT (AUTO) 9.4 K/uL (4.3-11.0)
[2024-09-03] MEDS ORDERED: INSU100V7 SQ (15:47)
[2024-09-03 16:06] LABS: CALCIUM, SERUM 8.4 mg/dL (8.5-10.1); CARBON DIOXIDE 19 mmol/L (21-32); CHLORIDE 102 mmol/L (98-107); CREATININE 2.7 mg/dL (0.6-1.3); GLUCOSE 284 mg/dL (74-106); POTASSIUM 5.8 mmol/L (3.5-5.1); SODIUM SERUM 133 mmol/L (136-145); UREA NITROGEN, BLOOD 42 mg/dL (7-18)
[2024-09-03 16:17] LABS: ALANINE AMINOTRANSFERASE 53 U/L (12-78); ALBUMIN 2.6 g/dL (3.4-5.0); ALKALINE PHOSPHATASE 173 U/L (46-116); ASPARTATE AMINOTRANSFERASE 164 U/L (15-37); BILIRUBIN,DIRECT 0.2 mg/dL (0.0-0.2); BILIRUBIN,TOTAL 1.2 mg/dL (0.2-1.0); NT-PRO BNP > 25000 pg/mL (0-125); TOTAL PROTEIN, SERUM 7.6 g/dL (6.4-8.2)
[2024-09-03 16:30] VITALS: BP 132/80; TEMP 98.4; O2SAT 99
[2024-09-03] MEDS ORDERED: ENOXAPARIN SODIUM 60 MG/0.6 ML DISP.SYRIN SQ ONE (16:39)
[2024-09-03] MEDS ORDERED: ASPIRIN 325 MG TABLET ONE (16:40)
[2024-09-03] MEDS: ASPIRIN 325 MG TABLET PO ONE (16:45)
[2024-09-03] MEDS: ENOXAPARIN SODIUM 60 MG/0.6 ML DISP.SYRIN SQ ONE (16:46)
== END 2024-09-03 16:50 | disposition short-term general hospital (02) ==
LOC: ER 15:06
DX: I21.3 ST elevation (STEMI) myocardial infarction of unspecified site (principal); D64.9 Anemia, unspecified; R53.1 Weakness; I11.0 Hypertensive heart disease with heart failure; E11.65 Type 2 diabetes mellitus with hyperglycemia; I50.9 Heart failure, unspecified; F03.90 Unspecified dementia, unspecified severity, without behavioral disturbance, psychotic disturbance, mood disturbance, and anxiety; Z79.84 Long term (current) use of oral hypoglycemic drugs; Z79.899 Other long term (current) drug therapy
CPT/HCPCS: 99285; 93307; 70450; 71045; 96372; 93005 ×2; 85025; 80048; 80076; 84484; 83880; 82962; J1650; 36415